=== PATIENT | male | born 1940 | race Hispanic/Latino ===

== ENCOUNTER 2019-09-19 14:00 | Inpatient (IN) | payer MEDICARE, OTHER ==
[2019-09-19 22:34] VITALS: BMI 25.3
--- NOTE | 2019-09-19 23:01 | PDOC.HHP ---
Hospitalist HPI - History of Present Illness Pneumonia/COVID19+ve
[2019-09-20] MEDS ORDERED: Senokot S 8.6-50 MG TAB PO PRN (01:41)
[2019-09-20] MEDS ORDERED: Ondansetron ODT 4 MG TAB PO PRN (01:41)
[2019-09-20] MEDS ORDERED: Calcium Carbonate 500 MG ChewTAB PO PRN (01:41)
[2019-09-20] MEDS ORDERED: Ondansetron PF 4 MG/2 ML Vial IVP PRN (01:41)
[2019-09-20] MEDS ORDERED: Enoxaparin Sodium 40 MG/0.4 ML SYRINGE SC SCH (01:45)
--- NOTE | 2019-09-20 03:46 | HP ---
PRIMARY CARE PHYSICIAN: Ave. CHIEF COMPLAINT: Shortness of breath. HISTORY OF PRESENT ILLNESS: The patient is a 37-year-old male with past medical history significant for CAD, no stents, hypertension, and Amish, who presents to the ER for the above complaint. The patient reports the onset of shortness of breath for the past 1 to 2 days. He reports an associated nonproductive cough with fever and malaise. He denies any wheezing, chest pain, heart palpitations, or lower extremity swelling. He denies any abdominal pain, nausea, vomiting, or diarrhea. He presented to the [facility] for the above complaints. In the [facility], EKG was sinus rhythm, 67 bpm. Vital signs are stable with he was afebrile, normal blood pressure, heart rate was sinus symone at 52. Respiratory rate was normal. Sat at 95% on 2 L. CTA of the chest was negative for PE. The patient's D-dimer was 925. BNP was 61.5. The patient's chest x- ray was negative for anything acute, COVID positive. His ABG; pH was 7.36, CO2 was 40, bicarb was 23, pO2 was 22. His CBC and CMP were unremarkable. His LFTs were normal range and his UA was unremarkable as well. PAST MEDICAL HISTORY: 1. Amish. 2. CAD. 3. Hypertension. 4. Glaucoma. 5. Depression. PAST SURGICAL HISTORY: CABG in 2017. SOCIAL HISTORY: The patient lives in [place] alone in an apartment. He is a former smoker, quit 25 years ago. Denies any alcohol intake. Denies any illicit drug use. He is retired. FAMILY HISTORY: Noncontributory to this case. ALLERGIES: AMOXICILLIN. HOME MEDICATIONS: The patient unable to reconcile home medications at bedside. REVIEW OF SYSTEMS: All review of systems is negative unless otherwise stated in the HPI. PHYSICAL EXAMINATION: VITAL SIGNS: Temperature 98, blood pressure 138/65, heart rate 52, respirations 16, and 95% on 2 L nasal cannula. CONSTITUTIONAL: The patient is uncomfortable, nontoxic in appearance, alert and oriented to person, place, and time. He is able to speak in complete sentences. HEAD: Atraumatic and normocephalic. EYES: PERRLA. Extraocular muscles intact. Sclerae nonicteric. ENT: Nares patent bilaterally. EACs clear bilaterally. TMs intact bilaterally. Oropharynx is clear. Moist mucous membranes. Uvula midline. No oral lesions. NECK: Supple. Trachea midline. No JVD. No cervical lymphadenopathy. No neck stiffness or tenderness. RESPIRATORY: The patient's respirations are even and nonlabored. Diminished in the bilateral lower extremities. No wheezes, rhonchi, or rales. CARDIOVASCULAR: S1 and S2 appreciated. No murmurs, rubs, or gallops. ABDOMEN: Soft and nontender. Active bowel sounds. No guarding. No rigidity. No rebound. Negative Rovsing sign. No abdominal bruit auscultated. BACK: Full range of motion. No central spinous tenderness. No CVA tenderness. BILATERAL UPPER EXTREMITIES: Normal range of motion, normal strength. Sensation intact. Palpable radial pulses. LOWER EXTREMITIES: Bilateral lower extremities, full range of motion. Strength normal. Sensation intact. Palpable pedal pulses. No swelling. NEUROLOGICAL: The patient is alert and oriented to person, place, and time. Cranial nerves 2 through 12 intact. No focal deficits. PSYCHIATRIC: History of depression. Denies suicidal or homicidal ideation. LABORATORY DATA AND RADIOLOGY: EKG was normal sinus rhythm, 67. Initial troponin was 0.017. BNP was 115.9. The patient had elevated D-dimer of 925, LDH of 390. COVID was positive. Chest x-ray was negative for any acute process. CTA of the chest was negative for PE but consistent with pneumonia. ABG; pH was 7.36, CO2 of 40, bicarb 23, pO2 of 22. Sodium 136, potassium 3.9, chloride 105, BUN 14, creatinine 1.1, glucose 134, calcium 9.1, T bilirubin 1.1, alkaline phosphatase 56, AST 49, ALT 34. UA was unremarkable. WBC 7.4, hemoglobin 13.3, hematocrit 38.7 , platelets 140. IMPRESSION AND PLAN: 1. Acute hypoxic respiratory failure secondary to COVID-19. We will admit the patient to medical floor observation status. Expected length of stay less than two midnights. The patient presented with pO2 of 22 on his ABG. He was positive for COVID. D-dimers 125. LDH was 390. Initial troponin was negative. BNP was 61.5. Upon exam, the patient was on 2 L nasal cannula, no acute respiratory distress, sat 97%. Able to speak in complete sentences. WBCs are 7.4. We will continue supportive care. We will place on droplet precautions. We will get a ferritin for baseline levels. We will add guaifenesin DM p.r.n. We will add MDIs p.r.n. 2. COVID-19. 3. Coronary artery disease. The patient has no stents. He does not know the dosing of his home medications. We will need nursing to reconcile. 4. Hypertension. The patient presented with normal blood pressure. We will continue to monitor BP. We will restart home medications when reconciled by nursing. 5. Glaucoma. Awaiting nursing to reconcile the patient's home medication. We will restart home glaucoma medications when reconciled by nursing. 6. Depression. The patient is stable. Denies suicidal or homicidal ideation. We will continue to monitor. 7. Lovenox for deep venous thrombosis prophylaxis. Protonix for gastrointestinal prophylaxis. The patient is a full code. His MPOA is Rosana Cota, #[phone]. 8. Discussed case with Dr. Sedrick [place]. Job ID: [id number] MTDD
[2019-09-20 06:57] LABS: #Lymphocytes 1.2 thou/uL (1.20-3.40); #Monocytes 0.4 thou/uL (0.11-0.59); #Neutrophils 8.1 thou/uL (1.40-6.50); %Lymphocytes 12.2 % (21.0-51.0); %Monocytes 3.8 % (0.0-10.0); Mean Corpuscular HGB CONC 32.7 g/dL (32.0-36.0); Mean Corpuscular Hemoglobin 28.6 pg (27.0-31.0); Mean Corpuscular Volume 87.6 fL (78.0-98.0); Mean Platelet Volume 9.3 fL (7.4-10.4); Platelet Count 175 thou/uL (130-400); RBC Distribution Width 12.6 % (11.5-14.5); Red Blood Cell (RBC) Count 4.91 mill/uL (4.70-6.10); White Blood Cell (WBC) Count 9.7 thou/uL (4.8-10.8)
[2019-09-20 07:20] LABS: Anion Gap 13 mmol/L (10-20); BUN (Urea Nitrogen) 17 mg/dL (8.4-25.7); Calc. Creatinine Clearance 87 mL/min (70-130); Calcium 8.9 mg/dL (7.8-10.44); Carbon Dioxide 20 mmol/L (23-31); Chloride 108 mmol/L (98-107); Estimated GFR-MDRD Greater than 90; Glucose 130 mg/dL (83-110); Potassium 3.8 mmol/L (3.5-5.1); Sodium 137 mmol/L (136-145)
[2019-09-20] MEDS: Guaifenesin DM 100-10/5 ML UDCUP PO PRN (09:30)
[2019-09-20] MEDS: Enoxaparin Sodium 40 MG/0.4 ML SYRINGE SC SCH (20:14)
[2019-09-21] MEDS: Guaifenesin DM 100-10/5 ML UDCUP PO PRN (09:29)
--- NOTE | 2019-09-21 17:12 | PDOC.HOSPP ---
- Subjective Encounter Date: 09/21/19 Encounter Time: 17:11 Subjective: Pt seen for followup for acute hypoxic respiratory failure. Cough+. SOBOE+. - Objective Vital Signs & Weight: Vital Signs (12 hours) Temp Pulse Resp BP Pulse Ox 09/21/19 13:23 98.5 F 58 L 18 172/81 H 92 L 09/21/19 09:00 98.5 F 58 L 20 167/66 H 92 L 09/21/19 08:00 92 L Weight Weight 166 lb 12.8 oz I&O: 09/20/19 09/21/19 09/22/19 06:59 06:59 06:59 Output Total 400 Balance -400 Result Diagrams: 09/20/19 06:13 09/20/19 06:13 Additional Labs: Labs and MARs reviewed by fl Hospitalist ROS - Review of Systems Respiratory: reports: cough, dry, SOB with excertion. denies: shortness of breath, hemoptysis, pleuritic pain, sputum, wheezing Cardiovascular: denies: chest pain, palpitations, orthopnea, paroxysmal noc. dyspnea, edema, light headedness Gastrointestinal: denies: nausea, vomiting, abdominal pain, diarrhea, constipation, melena, hematochezia - Medication Medications: Active Medications Generic Name Dose Route Start Last Admin Trade Name Freq PRN Reason Stop Dose Admin Enoxaparin Sodium 40 mg 09/20/19 21:00 09/20/19 20:14 Lovenox SC 40 mg 2100 RANJITH Administration Guaifenesin/Dextromethorphan 15 ml 09/20/19 01:41 09/21/19 09:29 Robitussin Dm PO 15 ml Q4H PRN Administration Cough Pantoprazole Sodium 40 mg 09/20/19 09:00 09/21/19 07:59 Protonix PO 40 mg DAILY RANJITH Administration - Exam General Appearance: awake alert Eye: anicteric sclera ENT: moist mucosa Neck: supple, no thyromegaly Heart: RRR, no rubs Respiratory: CTAB, normal chest expansion Gastrointestinal: soft, non-tender, normal bowel sounds Skin: no rashes Psychiatric: normal affect, normal behavior Hosp A/P (1) Acute respiratory failure with hypoxia Code(s): J96.01 - ACUTE RESPIRATORY FAILURE WITH HYPOXIA Status: Acute (2) COVID-19 virus infection Code(s): U07.1 - COVID-19 Status: Acute (3) HTN (hypertension) Code(s): I10 - ESSENTIAL (PRIMARY) HYPERTENSION Status: Chronic (4) Depression Code(s): F32.9 - MAJOR DEPRESSIVE DISORDER, SINGLE EPISODE, UNSPECIFIED Status : Chronic (5) Dyslipidemia Code(s): E78.5 - HYPERLIPIDEMIA, UNSPECIFIED Status: Chronic - Plan out of bed/ambulate Start dexamethasone Check d-dimer, CRP, ferritin in AM Continue PRN oxygen. Continue ezetimibe/simvastatin. Resume Toprol XL. Monitor vital signs and titrate antihypertensives as needed. Depression mild, stable. Previously COVID 19 +ve.
[2019-09-21] MEDS ORDERED: Albuterol Sulfate 1.25 MG/3 ML NEB NEB PRN (17:34)
[2019-09-21] MEDS: Dexamethasone 4 MG TAB PO SCH (17:59)
[2019-09-21] MEDS: Enoxaparin Sodium 40 MG/0.4 ML SYRINGE SC SCH (21:29)
[2019-09-21] MEDS: Atorvastatin Calcium 20 MG TAB PO SCH (21:30)
[2019-09-21] MEDS: Ezetimibe 10 MG TAB PO SCH ×2 (21:30→21:53)
[2019-09-21] MEDS: Aspirin 81 mg Enteric Coated Tablet PO SCH ×2 (21:30→21:52)
[2019-09-22 07:54] LABS: #Monocytes 0.3 thou/uL (0.11-0.59); #Neutrophils 4.2 thou/uL (1.40-6.50); %Basophils 0.1 % (0.0-1.0); %Eosinophils 0.2 % (0.0-10.0); %Lymphocytes 18.2 % (21.0-51.0); %Monocytes 5.6 % (0.0-10.0); %Neutrophils 75.9 % (42.0-75.0); Hemoglobin 13.9 g/dL (14.0-18.0); Mean Corpuscular HGB CONC 33.9 g/dL (32.0-36.0); Mean Corpuscular Hemoglobin 29.7 pg (27.0-31.0); Mean Corpuscular Volume 87.7 fL (78.0-98.0); Mean Platelet Volume 8.8 fL (7.4-10.4); Platelet Count 213 thou/uL (130-400); RBC Distribution Width 12.6 % (11.5-14.5); Red Blood Cell (RBC) Count 4.67 mill/uL (4.70-6.10); White Blood Cell (WBC) Count 5.6 thou/uL (4.8-10.8)
[2019-09-22 08:13] LABS: Anion Gap 11 mmol/L (10-20); BUN (Urea Nitrogen) 20 mg/dL (8.4-25.7); CRP (Inflammatory) 6.15 mg/dL (= or < 0.5); Calc. Creatinine Clearance 79 mL/min (70-130); Calcium 8.6 mg/dL (7.8-10.44); Carbon Dioxide 23 mmol/L (23-31); Chloride 108 mmol/L (98-107); Estimated GFR-MDRD 89; Glucose 145 mg/dL (83-110); Potassium 4.1 mmol/L (3.5-5.1); Sodium 138 mmol/L (136-145)
[2019-09-22] MEDS: Benzonatate 100 MG CAP PO PRN (15:56)
[2019-09-22] MEDS: Dexamethasone 4 MG TAB PO SCH (17:28)
[2019-09-22] MEDS: Atorvastatin Calcium 20 MG TAB PO SCH (20:37)
[2019-09-22] MEDS: Aspirin 81 mg Enteric Coated Tablet PO SCH (20:37)
[2019-09-22] MEDS: Enoxaparin Sodium 40 MG/0.4 ML SYRINGE SC SCH (20:37)
[2019-09-22] MEDS: Ezetimibe 10 MG TAB PO SCH (20:38)
[2019-09-22] MEDS: Acetaminophen 325 MG TAB PO PRN (20:39)
[2019-09-22] MEDS: Guaifenesin DM 100-10/5 ML UDCUP PO PRN (20:39)
--- NOTE | 2019-09-22 22:53 | PDOC.HOSPP ---
- Subjective Encounter Date: 09/22/19 Encounter Time: 11:00 Subjective: F/u: pneumonia THe patient reports persistent cough. He also states that he feels weak while ambulating. patient states that his fevers have improved from earlier this week , but his shortness of breath worsened. He feels difficulty in taking a deep breath - Objective Vital Signs & Weight: Vital Signs (12 hours) Temp Pulse Resp BP Pulse Ox 09/22/19 21:00 98.3 F 63 18 151/68 H 96 09/22/19 17:00 97.7 F 55 L 16 161/72 H 96 09/22/19 16:00 94 L 09/22/19 13:00 97.8 F 47 L 18 152/71 H 95 Weight Weight 166 lb 12.8 oz I&O: 09/21/19 09/22/19 09/23/19 06:59 06:59 06:59 Output Total 400 Balance -400 Result Diagrams: 09/22/19 06:58 09/22/19 06:58 Hospitalist ROS - Review of Systems Constitutional: denies: fever, chills - Medication Medications: Active Medications Generic Name Dose Route Start Last Admin Trade Name Freq PRN Reason Stop Dose Admin Acetaminophen 650 mg 09/20/19 01:41 09/22/19 20:39 Tylenol PO 650 mg Q4H PRN Administration Headache/Fever/Mild Pain (1-3) Aspirin 81 mg 09/21/19 21:00 09/22/19 20:37 Ecotrin PO 81 mg QPM RANJITH Administration Atorvastatin Calcium 20 mg 09/21/19 21:00 09/22/19 20:37 Lipitor PO 20 mg HS RANJITH Administration Benzonatate 100 mg 09/22/19 12:26 09/22/19 15:56 Tessalon PO 100 mg Q4H PRN Administration Cough Dexamethasone 6 mg 09/21/19 17:30 09/22/19 17:28 Decadron PO 6 mg Q24H RANJITH Administration Ezetimibe 10 mg 09/21/19 21:00 09/22/19 20:38 Zetia PO 10 mg HS RANJITH Administration Enoxaparin Sodium 40 mg 09/20/19 21:00 09/22/19 20:37 Lovenox SC 40 mg 2100 RANJITH Administration Guaifenesin/Dextromethorphan 15 ml 09/20/19 01:41 09/22/19 20:39 Robitussin Dm PO 15 ml Q4H PRN Administration Cough Metoprolol Succinate 25 mg 09/22/19 09:00 09/22/19 10:03 Toprol Xl PO Not Given DAILY RANJITH Pantoprazole Sodium 40 mg 09/20/19 09:00 09/22/19 08:52 Protonix PO 40 mg DAILY RANJITH Administration Sertraline HCl 25 mg 09/21/19 21:00 09/22/19 20:38 Zoloft PO 25 mg HS RANJITH Administration - Exam General Appearance: NAD, awake alert Eye: PERRL, anicteric sclera ENT: normocephalic atraumatic, no oropharyngeal lesions Neck: supple, symmetric, no JVD, no thyromegaly Heart: RRR, no murmur, no gallops, no rubs Respiratory: CTAB, no wheezes, no rales, no ronchi, normal chest expansion Gastrointestinal: soft, non-tender, non-distended Extremities: no cyanosis, no clubbing, no edema Hosp A/P - Plan THis is 79 year old male admitted for respiratory failure, recent COVID diagnosis Acute hypoxic respiratory failure likely secondary to COVID - continue with supportive care, patient is being weaned down to 3L nasal cannula - continue dexamethasone - ferritin has increased. Will check procalcitonin in the am - repeat COVID serology is pending - add tessalon pearls for cough Anemia - Hb 13.9, stable Physical deconditioning/Dizziness - PT evaluation
[2019-09-23 06:05] LABS: Hemoglobin 14.3 g/dL (14.0-18.0); Mean Corpuscular HGB CONC 34.1 g/dL (32.0-36.0); Mean Corpuscular Hemoglobin 29.8 pg (27.0-31.0); Mean Corpuscular Volume 87.4 fL (78.0-98.0); Mean Platelet Volume 8.7 fL (7.4-10.4); Platelet Count 222 thou/uL (130-400); RBC Distribution Width 12.5 % (11.5-14.5); White Blood Cell (WBC) Count 7.3 thou/uL (4.8-10.8)
--- NOTE | 2019-09-23 11:11 | RAD ---
SINGLE VIEW CHEST: HISTORY: Shortness of breath. COMPARISON: None. FINDINGS: A single view of the chest shows a normal sized cardiomediastinal silhouette. The patient is status p ost CABG. A linear opacity in the right mid lung may represent atelectasis or scarring. No consolidat ion, mass or pleural effusion is seen. IMPRESSION: Right mid lung atelectasis versus scarring. POS: EAA
[2019-09-23 11:48] LABS: SARS-CoV-2 MS2 Positive; SARS-CoV-2 N Gene Positive; SARS-CoV-2 S Gene Positive; SARS-CoV-2 orf1ab Positive
[2019-09-23] MEDS ORDERED: Azithromycin 250 MG TAB PO SCH (15:00)
[2019-09-23] MEDS: Dexamethasone 4 MG TAB PO SCH (16:51)
[2019-09-23] MEDS: Guaifenesin DM 100-10/5 ML UDCUP PO PRN (16:56)
--- NOTE | 2019-09-23 18:29 | PDOC.HOSPP ---
- Subjective Encounter Date: 09/23/19 Encounter Time: 14:00 Subjective: The patient still reports significant weakness and SOB just walking to the bathroom. Orthostatics unable to be done due to coughing fit per patient. Patient still has productive cough. Repeat COVID testing still positive - Objective Vital Signs & Weight: Vital Signs (12 hours) Temp Pulse Resp BP Pulse Ox 09/23/19 17:00 53 H 156/70 H 94 L 09/23/19 13:01 53 L 20 156/75 H 96 09/23/19 08:20 97.6 F 49 L 20 167/75 H 100 09/23/19 08:15 100 Weight Weight 166 lb 12.8 oz I&O: 09/22/19 09/23/19 09/24/19 06:59 06:59 06:59 Output Total 400 Balance -400 Result Diagrams: 09/23/19 05:44 09/22/19 06:58 Hospitalist ROS - Review of Systems Constitutional: denies: fever, chills - Medication Medications: Active Medications Generic Name Dose Route Start Last Admin Trade Name Freq PRN Reason Stop Dose Admin Acetaminophen 650 mg 09/20/19 01:41 09/22/19 20:39 Tylenol PO 650 mg Q4H PRN Administration Headache/Fever/Mild Pain (1-3) Aspirin 81 mg 09/21/19 21:00 09/22/19 20:37 Ecotrin PO 81 mg QPM RANJITH Administration Atorvastatin Calcium 20 mg 09/21/19 21:00 09/22/19 20:37 Lipitor PO 20 mg HS RANJITH Administration Benzonatate 100 mg 09/22/19 12:26 09/22/19 15:56 Tessalon PO 100 mg Q4H PRN Administration Cough Dexamethasone 6 mg 09/21/19 17:30 09/23/19 16:51 Decadron PO 6 mg Q24H RANJITH Administration Ezetimibe 10 mg 09/21/19 21:00 09/22/19 20:38 Zetia PO 10 mg HS RANJITH Administration Enoxaparin Sodium 40 mg 09/20/19 21:00 09/22/19 20:37 Lovenox SC 40 mg 2100 RANJITH Administration Guaifenesin/Dextromethorphan 15 ml 09/20/19 01:41 09/23/19 16:56 Robitussin Dm PO 15 ml Q4H PRN Administration Cough Metoprolol Succinate 25 mg 09/22/19 09:00 09/23/19 09:30 Toprol Xl PO Not Given DAILY RANJITH Pantoprazole Sodium 40 mg 09/20/19 09:00 09/23/19 08:01 Protonix PO 40 mg DAILY RANJITH Administration Sertraline HCl 25 mg 09/21/19 21:00 09/22/19 20:38 Zoloft PO 25 mg HS RANJITH Administration - Exam General Appearance: NAD, awake alert Eye: PERRL, anicteric sclera ENT: normocephalic atraumatic, no oropharyngeal lesions Neck: supple, no JVD Heart: RRR, no murmur, no gallops, no rubs Respiratory: no rales, no ronchi, normal chest expansion, no tachypnea, normal percussion Respiratory - other findings: diminished breath sounds at bases Gastrointestinal: soft, non-tender, non-distended, normal bowel sounds, no palpable masses Extremities: no cyanosis, no clubbing, no edema Hosp A/P - Plan THis is 79 year old male admitted for respiratory failure, recent COVID diagnosis Acute hypoxic respiratory failure likely secondary to COVID - continue with supportive care, patient is being weaned down to 1L nasal cannula - continue dexamethasone. Will try to order albuterol inhaler - procalcitonin normal, however will start azithromycin for possible bronchitis. - repeat cOVId testing 09/21 positive Anemia - Hb 13.9, stable Physical deconditioning/Dizziness - PT is following, got him up to edge of bed Dispo: pending improvement in weakness Code status: full code
[2019-09-23] MEDS: Aspirin 81 mg Enteric Coated Tablet PO SCH (19:59)
[2019-09-23] MEDS: Atorvastatin Calcium 20 MG TAB PO SCH (19:59)
[2019-09-23] MEDS: Ezetimibe 10 MG TAB PO SCH (19:59)
[2019-09-23] MEDS: Enoxaparin Sodium 40 MG/0.4 ML SYRINGE SC SCH (19:59)
[2019-09-23] MEDS ORDERED: Albuterol 200 PUFF (6.7GM INHALER) INH PRN (20:08)
[2019-09-24 05:55] LABS: Hemoglobin 13.3 g/dL (14.0-18.0); Mean Corpuscular HGB CONC 33.4 g/dL (32.0-36.0); Mean Corpuscular Hemoglobin 29.1 pg (27.0-31.0); Mean Corpuscular Volume 87.2 fL (78.0-98.0); Mean Platelet Volume 8.7 fL (7.4-10.4); Platelet Count 238 thou/uL (130-400); RBC Distribution Width 12.6 % (11.5-14.5); Red Blood Cell (RBC) Count 4.56 mill/uL (4.70-6.10); White Blood Cell (WBC) Count 7.7 thou/uL (4.8-10.8)
[2019-09-24 06:16] LABS: Anion Gap 11 mmol/L (10-20); BUN (Urea Nitrogen) 19 mg/dL (8.4-25.7); Calc. Creatinine Clearance 86 mL/min (70-130); Calcium 8.6 mg/dL (7.8-10.44); Carbon Dioxide 21 mmol/L (23-31); Chloride 109 mmol/L (98-107); Estimated GFR-MDRD Greater than 90; Glucose 117 mg/dL (83-110); Potassium 4.1 mmol/L (3.5-5.1); Sodium 137 mmol/L (136-145)
[2019-09-24] MEDS ORDERED: Azithromycin 250 MG TAB PO SCH (09:00)
[2019-09-24] MEDS ORDERED: Amlodipine 5 MG TAB PO SCH (10:15)
[2019-09-24] MEDS: Dexamethasone 4 MG TAB PO SCH (18:28)
[2019-09-24] MEDS: Ezetimibe 10 MG TAB PO SCH (20:21)
[2019-09-24] MEDS: Enoxaparin Sodium 40 MG/0.4 ML SYRINGE SC SCH (20:21)
[2019-09-24] MEDS: Aspirin 81 mg Enteric Coated Tablet PO SCH (20:21)
[2019-09-24] MEDS: Atorvastatin Calcium 20 MG TAB PO SCH (20:21)
--- NOTE | 2019-09-24 20:29 | PDOC.HOSPP ---
- Subjective Encounter Date: 09/24/19 Encounter Time: 20:29 Subjective: The patient states he is doing better, still fatigue with minimal exertion. His cough is improving. Per nursing he did well on room air but per patient he had some chest congestion so he placed oxygen back on PT recommending rehab - Objective Vital Signs & Weight: Vital Signs (12 hours) Temp Pulse Resp BP BP Pulse Ox 09/24/19 16:18 148/70 H 93 L 09/24/19 16:00 126/62 09/24/19 11:58 60 150/68 H 98 09/24/19 08:30 97.6 F 43 L 16 161/76 H 100 Weight Weight 166 lb 12.8 oz I&O: 09/23/19 09/24/19 09/25/19 06:59 06:59 06:59 Intake Total 1400 1000 Output Total 1630 900 Balance -230 100 Result Diagrams: 09/24/19 05:34 09/24/19 05:34 Hospitalist ROS - Medication Medications: Active Medications Generic Name Dose Route Start Last Admin Trade Name Freq PRN Reason Stop Dose Admin Acetaminophen 650 mg 09/20/19 01:41 09/22/19 20:39 Tylenol PO 650 mg Q4H PRN Administration Headache/Fever/Mild Pain (1-3) Aspirin 81 mg 09/21/19 21:00 09/23/19 19:59 Ecotrin PO 81 mg QPM RANJITH Administration Atorvastatin Calcium 20 mg 09/21/19 21:00 09/23/19 19:59 Lipitor PO 20 mg HS RANJITH Administration Benzonatate 100 mg 09/22/19 12:26 09/22/19 15:56 Tessalon PO 100 mg Q4H PRN Administration Cough Dexamethasone 6 mg 09/21/19 17:30 09/24/19 18:28 Decadron PO 6 mg Q24H RANJITH Administration Ezetimibe 10 mg 09/21/19 21:00 09/23/19 19:59 Zetia PO 10 mg HS RANJITH Administration Enoxaparin Sodium 40 mg 09/20/19 21:00 09/23/19 19:59 Lovenox SC 40 mg 2100 RANJITH Administration Guaifenesin/Dextromethorphan 15 ml 09/20/19 01:41 09/23/19 16:56 Robitussin Dm PO 15 ml Q4H PRN Administration Cough Metoprolol Succinate 25 mg 09/22/19 09:00 09/24/19 08:46 Toprol Xl PO Not Given DAILY RANJITH Pantoprazole Sodium 40 mg 09/20/19 09:00 09/24/19 08:22 Protonix PO 40 mg DAILY RANJITH Administration Sertraline HCl 25 mg 09/21/19 21:00 09/23/19 19:59 Zoloft PO 25 mg HS RANJITH Administration - Exam General Appearance: NAD, awake alert Eye: PERRL, anicteric sclera ENT: normocephalic atraumatic, no oropharyngeal lesions Neck: no JVD Heart: RRR, no murmur, no gallops, no rubs Respiratory: CTAB, no wheezes, no rales, no ronchi Gastrointestinal: soft, non-tender, non-distended, normal bowel sounds Extremities: no cyanosis, no clubbing, no edema Hosp A/P - Plan THis is 79 year old male admitted for respiratory failure, recent COVID diagnosis Acute hypoxic respiratory failure likely secondary to COVID - continue with supportive care, patient is being weaned down to room air - continue dexamethasone. Will try to order albuterol inhaler - procalcitonin normal. Continue azithromycin for bronchitis - repeat cOVId testing 09/21 positive - case management consult for rehab if posible Anemia - Hb 13.9, stable Physical deconditioning/Dizziness - continue with PT Dispo: pending improvement in weakness and stability on room air Code status: full code
[2019-09-25] MEDS: Azithromycin 250 MG TAB PO SCH (07:28)
[2019-09-25] MEDS: Amlodipine 5 MG TAB PO SCH (07:28)
[2019-09-25 09:41] LABS: Hemoglobin 14.1 g/dL (14.0-18.0); Mean Corpuscular HGB CONC 32.9 g/dL (32.0-36.0); Mean Corpuscular Hemoglobin 29.2 pg (27.0-31.0); Mean Corpuscular Volume 88.6 fL (78.0-98.0); Mean Platelet Volume 8.4 fL (7.4-10.4); Platelet Count 243 thou/uL (130-400); RBC Distribution Width 12.5 % (11.5-14.5); Red Blood Cell (RBC) Count 4.84 mill/uL (4.70-6.10); White Blood Cell (WBC) Count 6.5 thou/uL (4.8-10.8)
[2019-09-25] MEDS: Dexamethasone 4 MG TAB PO SCH (16:27)
--- NOTE | 2019-09-25 16:58 | PDOC.HOSPP ---
- Subjective Encounter Date: 09/25/19 Encounter Time: 17:00 Subjective: The patient states he got out of bed today with PT, walked around the room and desaturated to 85% on room air. Patient states after he got back in bed he was able to cough up more secretions. He denied chest pain - Objective Vital Signs & Weight: Vital Signs (12 hours) Temp Pulse Resp BP Pulse Ox Pulse Ox Pulse Ox 09/25/19 13:53 100 85 L 09/25/19 12:00 97.8 F 56 L 18 132/77 99 09/25/19 08:00 98.4 F 54 L 18 126/84 100 09/25/19 07:28 60 Pulse Ox 09/25/19 13:53 94 L 09/25/19 12:00 09/25/19 08:00 09/25/19 07:28 Weight Weight 166 lb 12.8 oz I&O: 09/24/19 09/25/19 09/26/19 06:59 06:59 06:59 Intake Total 1400 1000 Output Total 1630 1500 Balance -230 -500 Result Diagrams: 09/25/19 09:28 09/24/19 05:34 Hospitalist ROS - Review of Systems Constitutional: denies: fever, chills Respiratory: reports: cough - Medication Medications: Active Medications Generic Name Dose Route Start Last Admin Trade Name Freq PRN Reason Stop Dose Admin Acetaminophen 650 mg 09/20/19 01:41 09/22/19 20:39 Tylenol PO 650 mg Q4H PRN Administration Headache/Fever/Mild Pain (1-3) Amlodipine Besylate 5 mg 09/25/19 09:00 09/25/19 07:28 Norvasc PO 5 mg DAILY RANJITH Administration Aspirin 81 mg 09/21/19 21:00 09/24/19 20:21 Ecotrin PO 81 mg QPM RANJITH Administration Atorvastatin Calcium 20 mg 09/21/19 21:00 09/24/19 20:21 Lipitor PO 20 mg HS RANJITH Administration Azithromycin 250 mg 09/25/19 09:00 09/25/19 07:28 Zithromax PO 09/28/19 09:01 250 mg DAILY RANJITH Administration Benzonatate 100 mg 09/22/19 12:26 09/22/19 15:56 Tessalon PO 100 mg Q4H PRN Administration Cough Dexamethasone 6 mg 09/21/19 17:30 09/25/19 16:27 Decadron PO 6 mg Q24H RANJITH Administration Ezetimibe 10 mg 09/21/19 21:00 09/24/19 20:21 Zetia PO 10 mg HS RANJITH Administration Enoxaparin Sodium 40 mg 09/20/19 21:00 09/24/19 20:21 Lovenox SC 40 mg 2100 RANJITH Administration Guaifenesin/Dextromethorphan 15 ml 09/20/19 01:41 09/23/19 16:56 Robitussin Dm PO 15 ml Q4H PRN Administration Cough Metoprolol Succinate 25 mg 09/22/19 09:00 09/25/19 07:30 Toprol Xl PO Not Given DAILY RANJITH Pantoprazole Sodium 40 mg 09/20/19 09:00 09/25/19 07:29 Protonix PO 40 mg DAILY RANJITH Administration Sertraline HCl 25 mg 09/21/19 21:00 09/24/19 20:21 Zoloft PO 25 mg HS RANJITH Administration - Exam General Appearance: NAD, awake alert Eye: PERRL, anicteric sclera ENT: normocephalic atraumatic, no oropharyngeal lesions Neck: no JVD Heart: RRR, no murmur, no gallops, no rubs Respiratory: CTAB, no wheezes, no rales, no ronchi Gastrointestinal: soft, non-tender, non-distended, normal bowel sounds Extremities: no cyanosis, no clubbing, no edema Skin: normal turgor, no lesions, no rashes Neurological: cranial nerve grossly intact, normal sensation to touch, no focal deficits, no new deficit Hosp A/P - Plan THis is 79 year old male admitted for respiratory failure, recent COVID diagnosis Acute hypoxic respiratory failure likely secondary to COVID - continue with supportive care, patient is on room air, however still desaturating - continue dexamethasone and albuterol inhaler prn - procalcitonin normal. Continue azithromycin day 2 - repeat cOVId testing 09/21 positive - case management consult for rehab if posible Anemia- resolved Physical deconditioning/Dizziness - continue with PT, recommending rehab - placement pending Dispo: pending placement at rehab Code status: full code
[2019-09-25] MEDS: Ezetimibe 10 MG TAB PO SCH (20:02)
[2019-09-25] MEDS: Aspirin 81 mg Enteric Coated Tablet PO SCH (20:02)
[2019-09-25] MEDS: Atorvastatin Calcium 20 MG TAB PO SCH (20:03)
[2019-09-25] MEDS: Enoxaparin Sodium 40 MG/0.4 ML SYRINGE SC SCH (20:03)
[2019-09-25] MEDS: Benzonatate 100 MG CAP PO PRN (20:18)
[2019-09-26 07:08] LABS: Mean Corpuscular HGB CONC 33.4 g/dL (32.0-36.0); Mean Corpuscular Hemoglobin 29.1 pg (27.0-31.0); Mean Corpuscular Volume 87.3 fL (78.0-98.0); Mean Platelet Volume 8.9 fL (7.4-10.4); Platelet Count 248 thou/uL (130-400); RBC Distribution Width 12.8 % (11.5-14.5); Red Blood Cell (RBC) Count 4.81 mill/uL (4.70-6.10); White Blood Cell (WBC) Count 8.6 thou/uL (4.8-10.8)
[2019-09-26 07:32] LABS: Anion Gap 9 mmol/L (10-20); BUN (Urea Nitrogen) 26 mg/dL (8.4-25.7); Calc. Creatinine Clearance 80 mL/min (70-130); Calcium 9.1 mg/dL (7.8-10.44); Carbon Dioxide 26 mmol/L (23-31); Chloride 108 mmol/L (98-107); Estimated GFR-MDRD 90; Glucose 114 mg/dL (83-110); Potassium 4.4 mmol/L (3.5-5.1); Sodium 139 mmol/L (136-145)
[2019-09-26] MEDS: Amlodipine 5 MG TAB PO SCH (08:17)
[2019-09-26] MEDS: Azithromycin 250 MG TAB PO SCH (08:17)
--- NOTE | 2019-09-26 14:39 | PDOC.HOSPP ---
- Subjective Encounter Date: 09/26/19 Encounter Time: 14:37 Subjective: THe patient has been weaned off oxygen today. He states he walked a little bit from the bed to the bathroom however felt very fatigued. He states he would like to wait to hear about rehab bed tomorrow He believes he can go back to his house but would have to go at a very slow pace. Reports that showering he had to perform very slowly. Prior to coming here his sister would deliver food to his house daily - Objective Vital Signs & Weight: Vital Signs (12 hours) Temp Pulse Resp BP BP Pulse Ox Pulse Ox 09/26/19 13:00 97.8 F 58 L 18 143/67 H 100 09/26/19 09:12 91 L 09/26/19 09:00 97.9 F 53 L 18 160/67 H 99 09/26/19 08:17 55 L 09/26/19 08:00 99 09/26/19 05:00 97.9 F 55 L 19 145/76 H 98 Pulse Ox 09/26/19 13:00 09/26/19 09:12 97 09/26/19 09:00 09/26/19 08:17 09/26/19 08:00 09/26/19 05:00 Weight Weight 166 lb 12.8 oz I&O: 09/25/19 09/26/19 09/27/19 06:59 06:59 06:59 Intake Total 1000 500 Output Total 1500 650 Balance -500 -150 Result Diagrams: 09/26/19 06:11 09/26/19 06:11 Hospitalist ROS - Review of Systems Constitutional: denies: fever, chills - Medication Medications: Active Medications Generic Name Dose Route Start Last Admin Trade Name Freq PRN Reason Stop Dose Admin Acetaminophen 650 mg 09/20/19 01:41 09/22/19 20:39 Tylenol PO 650 mg Q4H PRN Administration Headache/Fever/Mild Pain (1-3) Amlodipine Besylate 5 mg 09/25/19 09:00 09/26/19 08:17 Norvasc PO 5 mg DAILY RANJITH Administration Aspirin 81 mg 09/21/19 21:00 09/25/19 20:02 Ecotrin PO 81 mg QPM RANJITH Administration Atorvastatin Calcium 20 mg 09/21/19 21:00 09/25/19 20:03 Lipitor PO 20 mg HS RANJITH Administration Azithromycin 250 mg 09/25/19 09:00 09/26/19 08:17 Zithromax PO 09/28/19 09:01 250 mg DAILY RANJITH Administration Benzonatate 100 mg 09/22/19 12:26 09/25/19 20:18 Tessalon PO 100 mg Q4H PRN Administration Cough Dexamethasone 6 mg 09/21/19 17:30 09/25/19 16:27 Decadron PO 6 mg Q24H RANJITH Administration Ezetimibe 10 mg 09/21/19 21:00 09/25/19 20:02 Zetia PO 10 mg HS RANJITH Administration Enoxaparin Sodium 40 mg 09/20/19 21:00 09/25/19 20:03 Lovenox SC 40 mg 2100 RANJITH Administration Guaifenesin/Dextromethorphan 15 ml 09/20/19 01:41 09/23/19 16:56 Robitussin Dm PO 15 ml Q4H PRN Administration Cough Metoprolol Succinate 25 mg 09/22/19 09:00 09/26/19 09:20 Toprol Xl PO Not Given DAILY RANJITH Pantoprazole Sodium 40 mg 09/20/19 09:00 09/26/19 08:17 Protonix PO 40 mg DAILY RANJITH Administration Sertraline HCl 25 mg 09/21/19 21:00 09/25/19 20:02 Zoloft PO 25 mg HS RANJITH Administration - Exam General Appearance: NAD, awake alert Eye: PERRL, anicteric sclera ENT: normocephalic atraumatic, no oropharyngeal lesions Neck: no JVD Heart: RRR, no murmur, no gallops, no rubs Respiratory: CTAB, no wheezes, no rales, no ronchi Gastrointestinal: soft, non-tender, non-distended, normal bowel sounds Hosp A/P - Plan THis is 79 year old male admitted for respiratory failure, recent COVID diagnosis Acute hypoxic respiratory failure likely secondary to COVID - continue with supportive care, patient is on room air, however still desaturating. Xray showed no pneumonia - continue dexamethasone and albuterol inhaler prn - procalcitonin normal. Continue azithromycin day 3 - repeat cOVId testing 09/21 positive - case management consult for rehab if posible Cough - tessalon pearls prn for cough Anemia- resolved Physical deconditioning/Dizziness - continue with PT, recommending rehab - placement pending Dispo: pending placement at rehab Code status: full code
--- NOTE | 2019-09-26 16:19 | RAD ---
PORTABLE CHEST: 09/26/19 HISTORY: Shortness of breath. COMPARISON: 09/23/19. Bilateral hazy patchy infiltrates are seen in the mid and lower lung hoang. There are some chronic p arenchymal changes with stranding and scarring. Vasculature is normal with no evidence of vascular co ngestion. Postop sternotomy change with borderline cardiomegaly. IMPRESSION: Hazy bilateral infiltrates superimposed on chronic lung change. If there is concern of pneumonia, con prosthetic aides teacher further evaluation with chest CT. POS: AH
[2019-09-26] MEDS: Dexamethasone 4 MG TAB PO SCH (17:40)
[2019-09-26] MEDS: Atorvastatin Calcium 20 MG TAB PO SCH (20:01)
[2019-09-26] MEDS: Enoxaparin Sodium 40 MG/0.4 ML SYRINGE SC SCH (20:01)
[2019-09-26] MEDS: Aspirin 81 mg Enteric Coated Tablet PO SCH (20:01)
[2019-09-26] MEDS: Ezetimibe 10 MG TAB PO SCH (20:01)
[2019-09-26] MEDS: Guaifenesin DM 100-10/5 ML UDCUP PO PRN (20:02)
[2019-09-26] MEDS: Acetaminophen 325 MG TAB PO PRN (20:05)
[2019-09-27] MEDS: Azithromycin 250 MG TAB PO SCH (07:38)
[2019-09-27] MEDS: Amlodipine 5 MG TAB PO SCH (07:52)
[2019-09-27] MEDS: Dexamethasone 4 MG TAB PO SCH (17:05)
--- NOTE | 2019-09-27 17:12 | PDOC.HOSPP ---
- Subjective Encounter Date: 09/27/19 Encounter Time: 07:00 Subjective: The patient has no significant cough. He is SOB on exertion and does have to stop and rest periodically. He states his oxygen number dropped to 87% while ambulating - Objective Vital Signs & Weight: Vital Signs (12 hours) Temp Pulse Resp BP BP Pulse Ox Pulse Ox 09/27/19 13:35 91 L 09/27/19 11:00 99 09/27/19 07:55 100 09/27/19 07:54 97.7 F 59 L 18 142/64 H 100 09/27/19 07:52 57 L 142/64 H Pulse Ox Pulse Ox 09/27/19 13:35 93 L 95 09/27/19 11:00 09/27/19 07:55 09/27/19 07:54 09/27/19 07:52 Weight Weight 166 lb 12.8 oz I&O: 09/26/19 09/27/19 09/28/19 06:59 06:59 06:59 Intake Total 500 850 Output Total 650 1250 Balance -150 -400 Result Diagrams: 09/26/19 06:11 09/26/19 06:11 Hospitalist ROS - Review of Systems Constitutional: denies: fever, chills - Medication Medications: Active Medications Generic Name Dose Route Start Last Admin Trade Name Connorq PRN Reason Stop Dose Admin Acetaminophen 650 mg 09/20/19 01:41 09/26/19 20:05 Tylenol PO 650 mg Q4H PRN Administration Headache/Fever/Mild Pain (1-3) Amlodipine Besylate 5 mg 09/25/19 09:00 09/27/19 07:52 Norvasc PO 5 mg DAILY RANJITH Administration Aspirin 81 mg 09/21/19 21:00 09/26/19 20:01 Ecotrin PO 81 mg QPM RANJITH Administration Atorvastatin Calcium 20 mg 09/21/19 21:00 09/26/19 20:01 Lipitor PO 20 mg HS RANJITH Administration Azithromycin 250 mg 09/25/19 09:00 09/27/19 07:38 Zithromax PO 09/28/19 09:01 250 mg DAILY RANJITH Administration Benzonatate 100 mg 09/22/19 12:26 09/25/19 20:18 Tessalon PO 100 mg Q4H PRN Administration Cough Dexamethasone 6 mg 09/21/19 17:30 09/27/19 17:05 Decadron PO 6 mg Q24H RANJITH Administration Ezetimibe 10 mg 09/21/19 21:00 09/26/19 20:01 Zetia PO 10 mg HS RANJITH Administration Enoxaparin Sodium 40 mg 09/20/19 21:00 09/26/19 20:01 Lovenox SC 40 mg 2100 RANJITH Administration Guaifenesin/Dextromethorphan 15 ml 09/20/19 01:41 09/26/19 20:02 Robitussin Dm PO 15 ml Q4H PRN Administration Cough Metoprolol Succinate 25 mg 09/22/19 09:00 09/27/19 07:38 Toprol Xl PO 25 mg DAILY RANJITH Administration Pantoprazole Sodium 40 mg 09/20/19 09:00 09/27/19 07:38 Protonix PO 40 mg DAILY RANJITH Administration Sertraline HCl 25 mg 09/21/19 21:00 09/26/19 20:01 Zoloft PO 25 mg HS RANJITH Administration - Exam General Appearance: NAD, awake alert Eye: PERRL, anicteric sclera ENT: normocephalic atraumatic, no oropharyngeal lesions Neck: supple, symmetric, no JVD Heart: RRR, no murmur, no gallops, no rubs Respiratory: CTAB, no wheezes, no rales, no ronchi, no tachypnea Gastrointestinal: soft, non-tender, non-distended, normal bowel sounds Extremities: no cyanosis, no clubbing, no edema Skin: normal turgor, no lesions, no rashes Neurological: cranial nerve grossly intact, normal sensation to touch, no focal deficits, no new deficit Musculoskeletal: normal tone, normal strength, no muscle wasting Hosp A/P - Plan THis is 79 year old male admitted for respiratory failure, recent COVID diagnosis Acute hypoxic respiratory failure likely secondary to COVID - continue with supportive care, patient is on room air, however still desaturating. Xray showed no pneumonia - continue dexamethasone and albuterol inhaler prn - procalcitonin normal. Continue azithromycin day 4 - repeat cOVId testing 09/21 positive. Will check third test - case management consult for rehab if posible Cough - tessalon pearls prn for cough Anemia- resolved Physical deconditioning/Dizziness - continue with PT Dispo:dc home with home health tomorrow Code status: full code
[2019-09-27] MEDS: Aspirin 81 mg Enteric Coated Tablet PO SCH (20:37)
[2019-09-27] MEDS: Atorvastatin Calcium 20 MG TAB PO SCH (20:37)
[2019-09-27] MEDS: Ezetimibe 10 MG TAB PO SCH (20:37)
[2019-09-27] MEDS: Enoxaparin Sodium 40 MG/0.4 ML SYRINGE SC SCH (20:37)
[2019-09-28] MEDS: Azithromycin 250 MG TAB PO SCH (08:32)
[2019-09-28] MEDS: Amlodipine 5 MG TAB PO SCH (08:32)
[2019-09-28 12:21] LABS: SARS-CoV-2 MS2 Positive; SARS-CoV-2 N Gene Positive; SARS-CoV-2 S Gene Positive; SARS-CoV-2 orf1ab Positive
[2019-09-28] MEDS: Dexamethasone 4 MG TAB PO SCH (17:11)
[2019-09-28 17:35] VITALS: BP 156/69; TEMP 97.8
--- NOTE | 2019-09-28 23:00 | DIS ---
DATE OF ADMISSION: 09/20/2019 DATE OF DISCHARGE: 09/28/2019 DISCHARGE DIAGNOSES: 1. Acute hypoxic respiratory failure secondary to COVID-19 infection. 2. Anemia. 3. Physical deconditioning. BRIEF HISTORY OF PRESENT ILLNESS: This is a 79-year-old male with past medical history of CAD, hypertension, who presented with shortness of breath for the past 1 to 2 days. He denied any wheezing or chest pain. He did have a nonproductive cough with fever and malaise. The patient had a CTA of his chest on admission that was negative for PE. His D-dimer was elevated at 925. The patient reported being COVID positive at an outside facility. He was admitted for further workup. HOSPITAL COURSE: Acute hypoxic respiratory failure secondary to COVID-19 infection: The patient was initially monitored with supportive care. However, due to difficulty in weaning off his oxygen, he was eventually started on dexamethasone. He completed a 7-day course of dexamethasone. He was also started on azithromycin with improvement. He received five days of azithromycin. He was weaned off oxygen on the day of discharge and did not desaturate while ambulating at the time of discharge. However, the day prior, the patient did have a mild desaturation in his oxygen to 87% on room air. Due to his weakness, we tried getting him into a rehab facility. However, he was rejected from two rehab facilities due to being COVID positive. Therefore, instead, we decided to discharge the patient home with home health and will supply the patient with oxygen if needed. He was advised to self quarantine for at least 10 days until his cough completely goes away. He is advised to wear a mask at all times and to have any family wear an N95 mask while visiting him. DISCHARGE PHYSICAL EXAMINATION: VITAL SIGNS: Temperature 97.8, heart rate 55, RR 18, O2 saturation 98% on room air, and blood pressure 156/69. GENERAL: The patient is alert, awake, and oriented x3. CVS: Regular rate and rhythm with no murmurs, rubs, or gallops. LUNGS: Slightly diminished breath sounds bilaterally. ABDOMEN: Positive bowel sounds, soft, nontender, and nondistended. EXTREMITIES: No edema. PERTINENT LABORATORY DATA: CBC 09/25: Normal. BMP 09/25: Unremarkable except for high chloride of 108. Troponin I: 0.017, 0.019, 0.015. Procalcitonin 09/22: 0.03. Ferritin 09/21: 555.06. COVID serology 09/21: Positive. COVID serology 09/26: Positive. IMAGING: Chest x-ray 09/25: Shows hazy bilateral infiltrates superimposed on chronic lung change. DISCHARGE CONDITION: Stable. ACTIVITY: As tolerated. DIET: Regular diet. DISCHARGE MEDICATIONS: 1. Aspirin 81 mg p.o. daily. 2. Ezetimibe-simvastatin 10 mg/40 mg p.o. q.p.m. 3. Metoprolol 25 mg daily. 4. Sertraline 25 mg p.o. at bedtime. 5. Tessalon Perles 100 mg p.o. q.4 hours p.r.n. DISCHARGE INSTRUCTIONS: The patient to follow up with PCP in a week. He should get a repeat chest x-ray in 6 weeks for followup of his infiltrates. Job ID: [id number]
== END 2019-09-28 19:00 | disposition home health service (06) | DRG 177 ==
LOC: T4-A 14:00 → OBSVTOIN 09-20 11:40
PROVIDERS: ADMIT Internal Medicine; ATTEND Internal Medicine
PROC: 8E0ZXY6 Isolation (ICD-10-PCS; principal; 2019-09-20)
DX: U07.1 COVID-19 (principal); J96.01 Acute respiratory failure with hypoxia; D64.9 Anemia, unspecified; I25.10 Atherosclerotic heart disease of native coronary artery without angina pectoris; I10 Essential (primary) hypertension; F32.9 Major depressive disorder, single episode, unspecified; E78.5 Hyperlipidemia, unspecified; H40.9 Unspecified glaucoma; R42 Dizziness and giddiness; Z95.1 Presence of aortocoronary bypass graft; Z88.1 Allergy status to other antibiotic agents; Z87.891 Personal history of nicotine dependence; Z79.899 Other long term (current) drug therapy; Z79.82 Long term (current) use of aspirin
CPT/HCPCS: 36415; 71045; 80048; 82728; 84145; 84484; 85025; 85027; 85379; 86140; 87635; 96372; G0378; J1650; J8540; U0003

== ENCOUNTER 2022-10-15 09:16 | Emergency (ER) | payer MEDICARE ==
[2022-10-15 10:10] LABS: #Eosinphils 0.1 thou/uL (0.0-0.7); #Monocytes 0.5 thou/uL (0.11-0.59); #Neutrophils 3.3 thou/uL (1.40-6.50); %Basophils 0.6 % (0.0-1.0); %Eosinophils 1.8 % (0.0-10.0); %Lymphocytes 36.5 % (21.0-51.0); %Monocytes 8.2 % (0.0-10.0); %Neutrophils 52.7 % (42.0-75.0); Hemoglobin 14.1 g/dL (14.0-18.0); Mean Corpuscular Hemoglobin 28.7 pg (27.0-31.0); Mean Platelet Volume 10.4 fL (7.4-10.4); Platelet Count 133 10x3/uL (130-400); RBC Distribution Width 13.2 % (11.5-14.5); Red Blood Cell (RBC) Count 4.91 mill/uL (4.70-6.10); White Blood Cell (WBC) Count 6.2 10x3/uL (4.8-10.8)
[2022-10-15 11:10] LABS: ALT (SGPT) 16 U/L (8-55); AST (SGOT) 20 U/L (5-34); Albumin 4.2 g/dL (3.4-4.8); Alkaline Phosphatase 90 U/L (40-110); Anion Gap 13 mmol/L (10-20); BUN (Urea Nitrogen) 25 mg/dL (8.4-25.7); Calc. Creatinine Clearance 0 mL/min (70-130); Calcium 9.6 mg/dL (7.8-10.44); Carbon Dioxide 24 mmol/L (23-31); Chloride 107 mmol/L (98-107); Estimated GFR 76; Globulin 3.3 g/dL (2.4-3.5); Glucose 90 mg/dL (83-110); Protein, Total 7.5 g/dL (5.8-8.1); Sodium 140 mmol/L (136-145)
[2022-10-15 11:27] LABS: Magnesium 2.1 mg/dL (1.6-2.6)
[2022-10-15 11:28] LABS: CK (CPK) 129 U/L (30-200); Lipase 15 U/L (8-78)
[2022-10-15] MEDS ORDERED: hydrALAZINE 20 MG/ML VIAL ONE (11:28)
[2022-10-15] MEDS ORDERED: Atenolol 25 MG TAB PO SCH (13:00)
== END 2022-10-15 14:36 | disposition home or self-care (01) ==
LOC: ERS 09:16
DX: I10 Essential (primary) hypertension (principal); E78.5 Hyperlipidemia, unspecified
CPT/HCPCS: 70450; 71045; 80053; 82550; 83690; 83735; 83880; 84484; 85025; 93005; 96374; 99284; J0360